=== PATIENT | male | born 1955 | race Caucasian/White ===

== ENCOUNTER → 2017-08-17 | Outpatient (CLI) | payer MEDICARE ==
[2017-08-17 11:58] LABS: HEMATOCRIT 46.7 % (42.0-52.0); HEMOGLOBIN 15.2 g/dL (13.5-18.0); MEAN CELL VOLUME 92 fl (78-100); MEAN CORPUSCULAR HEMOGLOBIN 30 pg (27-31); MEAN CORPUSCULAR HGB CONC 33 g/dL (33-37); MEAN PLATELET VOLUME 10.6 fl (7.4-10.4); PLATELET COUNT 130 K/mm3 (130-400); RED BLOOD COUNT 5.07 M/mm3 (4.20-5.60); RED CELL DISTRIBUTION WIDTH 15.3 % (11.5-14.5); WHITE BLOOD COUNT 13.9 K/mm3 (4.8-10.8)
[2017-08-17 12:23] LABS: BAND 1 % (0-10); LYMPHOCYTE 15 % (20-51); MONOCYTE 12 % (3-10); NEUTROPHILS 72 % (42-75)
[2017-08-17 13:18] LABS: ERYTHROCYTE SEDIMENTATION RATE 9 mm/hr (0-20)
== END ==
LOC: LAB 11:42
PROVIDERS: Nurse Practitioner Family
DX: M25.522 Pain in left elbow (principal); R22.30 Localized swelling, mass and lump, unspecified upper limb; Z87.39 Personal history of other diseases of the musculoskeletal system and connective tissue

== ENCOUNTER → 2018-10-17 | Outpatient (CLI) | payer MEDICARE ==
[~2018-10-17] VITALS: Ht 180.3 cm; Wt 109.1 kg
[~2018-10-17] MED LIST: ADULT ASPIRIN R81 MG PO; ALPRAZOLAM0.25 MG PO; ATORVASTATIN CA40 MG PO; FUROSEMIDE20 MG PO; HUMALOG KWIKPEN SQ; ISOSORBIDE30 MG PO; LANTUS SOLOS100 U/ML SQ; METOLAZONE5 MG PO; METOPROLOL SUC200 M1 PO; NITROSTAT0.4 M1 SL; OMEPRAZOLE40 MG PO; POTASSIUM CH2 MEQ/ML PO; PROAIR HFA0.09 MG/AC IH; RT SPIRIVA INH18 MCG IH; ULORIC40 MG PO; VASOTEC 5MG5 MG/TAB PO; WARFARIN SODIUM3 MG PO; ZANTAC300 MG PO; ZETIA10 M1 PO; ZOLPIDEM TART12.5 MG PO
[2018-10-17 13:56] LABS: EOS # 0.2 (0.04-0.40); EOS % 2.3 % (0.0-4.0); HEMATOCRIT 45.8 % (42.0-52.0); HEMOGLOBIN 14.8 g/dL (13.5-18.0); LYMPH# 1.2 (1.50-4.00); MEAN CELL VOLUME 94 fl (78-100); MEAN CORPUSCULAR HEMOGLOBIN 31 pg (27-31); MEAN CORPUSCULAR HGB CONC 32 g/dL (33-37); MEAN PLATELET VOLUME 10.7 fl (7.4-10.4); MONO # 1.1 (0.20-0.80); NEU # 6.6 (1.40-6.50); PLATELET COUNT 130 K/mm3 (130-400); RED BLOOD COUNT 4.85 M/mm3 (4.20-5.60); RED CELL DISTRIBUTION WIDTH 15.7 % (11.5-14.5); WHITE BLOOD COUNT 9.1 K/mm3 (4.8-10.8)
[2018-10-17 14:08] VITALS: BP 130/82
[2018-10-17 14:08] LABS: ALBUMIN 4.1 g/dL (3.4-4.8); POTASSIUM 3.9 mmol/L (3.5-5.1)
[2018-10-17 14:09] LABS: CALCIUM 9.6 mg/dL (8.3-10.5)
[2018-10-17 14:10] LABS: PROTHROMBIN TIME 24.4 SECONDS (9.0-12.0)
[2018-10-17 14:11] LABS: TOTAL PROTEIN 7.1 g/dL (6.2-8.1)
[2018-10-17 14:13] LABS: TOTAL BILIRUBIN 1.3 mg/dL (0.2-1.2)
== END ==
LOC: AMSURD 13:46
PROVIDERS: Internal Medicine
DX: Z01.818 Encounter for other preprocedural examination (principal); N40.1 Benign prostatic hyperplasia with lower urinary tract symptoms

== ENCOUNTER → 2019-09-18 | Outpatient (CLI) | payer MEDICARE ==
[2018-10-17 14:08] VITALS: BP 130/82
== END ==
LOC: LAB 09:59
DX: R05 Cough (principal); R09.89 Other specified symptoms and signs involving the circulatory and respiratory systems; R06.02 Shortness of breath; R19.7 Diarrhea, unspecified; Z20.828 Contact with and (suspected) exposure to other viral communicable diseases

== ENCOUNTER → 2021-02-09 | Outpatient (CLI) | payer MEDICARE | LOC: LAB 16:33 → EDSTATUS 16:48 → LAB 16:50 | DX: Z20.822 Contact with and (suspected) exposure to COVID-19 (principal) ==

== ENCOUNTER → 2023-03-12 | Outpatient (CLI) | payer MEDICARE | LOC: RAD 14:30 | DX: M25.511 Pain in right shoulder (principal) ==

== ENCOUNTER → 2023-11-02 | Outpatient (CLI) | payer MEDICARE ==
[2023-11-02 10:27] LABS: PROTHROMBIN TIME 18.2 SECONDS (9.0-12.0)
== END ==
LOC: LAB 07:52
PROVIDERS: Internal Medicine
DX: I48.20 Chronic atrial fibrillation, unspecified (principal)

== ENCOUNTER 2024-03-21 07:03 | Observation (INO) | payer MEDICARE ==
[~2024-03-21] VITALS: Ht 180.3 cm; Wt 112.5 kg
[2024-03-21] MEDS ORDERED: Albuterol/Ipratropium 3 MG-0.5 MG/3 ML Neb Soln IH ONE (07:30)
[2024-03-21 07:34] LABS: HEMATOCRIT 45.2 % (42.0-52.0); HEMOGLOBIN 14.6 g/dL (13.5-18.0); MEAN CELL VOLUME 96 fl (78-100); MEAN CORPUSCULAR HEMOGLOBIN 31 pg (27-31); MEAN CORPUSCULAR HGB CONC 32 g/dL (33-37); MEAN PLATELET VOLUME 11.1 fl (7.4-10.4); PLATELET COUNT 130 K/mm3 (130-400); RED BLOOD COUNT 4.72 M/mm3 (4.20-5.60); RED CELL DISTRIBUTION WIDTH 15.6 % (11.5-14.5); WHITE BLOOD COUNT 10.9 K/mm3 (4.8-10.8)
[2024-03-21 07:39] LABS: ALBUMIN 4.4 g/dL (3.4-4.8)
[2024-03-21 07:40] LABS: CALCIUM 9.7 mg/dL (8.3-10.5)
[2024-03-21 07:42] LABS: TOTAL PROTEIN 7.6 g/dL (6.2-8.1)
[2024-03-21 07:43] LABS: TOTAL BILIRUBIN 1.5 mg/dL (0.2-1.2)
[2024-03-21] MEDS ORDERED: Doxycycline Monohydrate 100 MG CAP PO ONE (07:45)
[2024-03-21] MEDS ORDERED: methylPREDNISolone Sod Succ 125 MG/2 ML VIAL IV ONE (07:45)
[2024-03-21 07:54] LABS: PROTHROMBIN TIME 29.3 SECONDS (9.0-12.0)
[2024-03-21 08:07] LABS: LYMPHOCYTE 4 % (20-51); MONOCYTE 9 % (3-10); NEUTROPHILS 86 % (42-75)
[2024-03-21] MEDS ORDERED: DOXYCYCLINE MO100 M3 PO (09:04)
[2024-03-21] MEDS ORDERED: PREDNISONE20 M1 PO (09:04)
[2024-03-21] MEDS ORDERED: ATROVENT HFA IH (09:04)
[2024-03-21] MEDS ORDERED: JANTOVEN4 MG PO (09:10)
[2024-03-21] MEDS ORDERED: LASIX40 M1 PO (09:13)
[2024-03-21] MEDS ORDERED: LASIX40 M1 (09:13)
[2024-03-21] MEDS ORDERED: SOTALOL HCL240 MG PO (09:16)
[2024-03-21] MEDS ORDERED: MAGNESIUM400 MG PO (09:16)
[2024-03-21] MEDS ORDERED: VITAMIN D3125 MC1 PO (09:17)
[2024-03-21] MEDS ORDERED: Magnesium Oxide 400 MG TAB PO SCH (09:34)
[2024-03-21] MEDS ORDERED: metOLazone 2.5 MG TABLET PO SCH (09:35)
[2024-03-21] MEDS ORDERED: Enalapril 5 MG TAB PO SCH (09:36)
[2024-03-21] MEDS ORDERED: Tiotropium 2.5 MCG Respimat MDI IH SCH (09:36)
[2024-03-21] MEDS ORDERED: Ezetimibe 10 MG TAB PO SCH (09:36)
[2024-03-21] MEDS ORDERED: Isosorbide Mononitrate ER (24-HR) 30 MG TAB PO SCH (09:37)
[2024-03-21] MEDS ORDERED: Insulin Glargine-yfgn (Lantus) SQ SCH (09:37)
[2024-03-21] MEDS ORDERED: Albuterol/Ipratropium 3 MG-0.5 MG/3 ML Neb Soln IH PRN (09:45)
[2024-03-21] MEDS ORDERED: Polyethylene Glycol 3350 Powder 17 GM PACKET PO PRN (09:45)
[2024-03-21] MEDS ORDERED: Acetaminophen 325 MG TAB PO PRN (09:45)
[2024-03-21] MEDS ORDERED: NS IV SCH (09:45)
[2024-03-21] MEDS ORDERED: KCL IV SCH (09:45)
[2024-03-21] MEDS ORDERED: Dextrose 50% Water 25 GM/50 ML SYRINGE IV PRN (10:00)
[2024-03-21] MEDS ORDERED: Glucagon 1 MG VIAL IM PRN (10:00)
[2024-03-21] MEDS ORDERED: Dextrose (Glucose) 15 GM (4 x 3.75 GM) Chewable TAB PACK PO PRN (10:00)
[2024-03-21] MEDS ORDERED: Nicotine 14 MG DAILY PATCH TD SCH (10:33)
[2024-03-21] MEDS ORDERED: Insulin Lispro (HumaLOG) SQ SCH (12:00)
[2024-03-21] MEDS ORDERED: Albuterol/Ipratropium 3 MG-0.5 MG/3 ML Neb Soln IH SCH (13:00)
[2024-03-21] MEDS ORDERED: Furosemide 40 MG TAB PO SCH (15:00)
[2024-03-21 15:18] VITALS: BP 120/76
--- NOTE | 2024-03-21 15:20 | NUR ---
Tele applied by staff.
--- NOTE | 2024-03-21 15:20 | NUR ---
PT BROUGHT TO MED SURG ROOM 201 VIA WHEELCHAIR WITH ASSISTANCE FROM IZA VAZQUEZ, ALL PT BELONGINGS BROUGHT WITH PT TO FLOOR AND PT ORIENTATED TO ROOM. PT CURRENTLY RESTING ON THE EDGE OF THE BED WITH CALL LIGHT IN REACH
--- NOTE | 2024-03-21 15:25 | NUR ---
PCT LU REQUESTED THAT PT STAY SEATED AND IF HE NEEDED TO STAND UP OR USE THE RESTROOM THAT HE CALL SO STAFF COULD ASSIST HIM. PT ARGUED WITH PCT, LU THEN REQUESTED THAT THIS NURSE GO SPEAK WITH PT TO DISCUSS POLICY. THIS NURSE INFORMED PT THAT IT IS HOSPITAL POLICY TO FOLLOW ALL FALL RISK PRECAUTIONS. WHEN THIS NURSE WAS LEAVING THE ROOM, THE BED ALARM WAS TURNED ON. PT ASKED WHAT THAT WAS AND THIS NURSE INFORMED HIM, PT STATED THAT "IF I FEEL LIKE STANDING UP THEN THATS WHAT IM GOING TO DO" THIS NURSE REMINDED PT OF THE DAYS INVENTS INCLUDING WHEN THE PT LOST CONCIOUSNESS IN THE ER AND WOULD HAVE FALLEN BACK HAD THE CHARGE NURSE NOT BEEN THERE, PT REPORTS "THAT WAS THE FIRST TIME IN MY LIFE THAT HAS HAPPENED IT WONT HAPPEN AGAIN"THIS NURSE AGAIN REMINDED PT OF HOSPITAL POLICY TO ENSURE PT DOES NOT FALL. PT REQUESTS THAT WE GET HIM A PHONE AND THIS NURSE INFORMED PT WE COULD HAPPILY DO THAT. PROVIDER PABLITO AND LUBA TARIQ NOTIFIED OF PT REFUSAL TO FOLLOW HOSPITAL POLICY. PROVIDER PABLITO AND LUBA REQUEST THAT WE CONTINUE TO RE-EDUCATE ON THE IMPORTANCE OF CALLING BEFORE STANDING
--- NOTE | 2024-03-21 17:00 | NUR ---
PT AGREEABLE TO CHANGE TO HOSPITAL GOWN AND NON-SKID SOCKS
--- NOTE | 2024-03-21 17:01 | NUR ---
Tele applied by staff.
[2024-03-21 17:54] VITALS: BP 119/75
[2024-03-21 18:12] LABS: CALCIUM 9.4 mg/dL (8.3-10.5)
[2024-03-21 19:00] VITALS: BP 116/70
--- NOTE | 2024-03-21 19:11 | NUR ---
REPORT TO HILLARY ALEXIS
--- NOTE | 2024-03-21 19:24 | NUR ---
RECEIVED REPORT FROM REUBEN PARKER
[2024-03-21] MEDS ORDERED: Warfarin 1 MG TAB PO SCH (21:00)
[2024-03-21] MEDS ORDERED: methylPREDNISolone Sod Succ 125 MG/2 ML VIAL IV SCH (21:00)
[2024-03-21] MEDS ORDERED: Docusate Sodium 100 MG CAP PO SCH (21:00)
[2024-03-21] MEDS ORDERED: Doxycycline Monohydrate 100 MG CAP PO SCH (21:00)
--- NOTE | 2024-03-21 21:08 | NUR ---
PATIENT C/O DISCOMFORT AT IV SITE. UPON ASSESS NOTED TO HAVE SOME MILD SWELLING TO AREA. IV STOPPED AND NEW SITE PLACED RFA. DC'D LAC IV
[2024-03-21 23:27] VITALS: BP 115/74
[2024-03-21] MEDS ORDERED: Melatonin 3 MG TAB PO SCH (23:30)
--- NOTE | 2024-03-21 23:43 | NUR ---
PATIENT REQUESTING AMBIEN THAT HE TAKES AT HOME. PROVIDER NOTIFIED AND DETERMINED THAT IT IS CONTRAINDICATED WITH SOB. MELATONIN ORDERED. PATIENT STATES HE WILL GIVE IT A TRY.
[2024-03-22] VITALS (7 sets, daily range): BP systolic 110–133; BP diastolic 71–87
--- NOTE | 2024-03-22 01:18 | NUR ---
FLUIDS COMPLETE. PATIENT RESTING
--- NOTE | 2024-03-22 04:04 | NUR ---
PATIENT CALLED TO SAY THAT THE MELATONIN IS NOT HELPING HIM SLEEP. STATES MIND WON'T SHUT OFF AND HE IS MILDLY ANXIOUS WHEN LAYING DOWN. C/O MILD SOB WITH LAYING WELL. SPO2 93% ON RA WHILE SITTING. BREATHING UNLABORED. PLACED ON 2L O2 PER NC FOR COMFORT WHILE LAYING.
--- NOTE | 2024-03-22 06:13 | NUR ---
PATIENT REPORTS HAS NOT SLEPT ALL NOC. STATES HE STILL FEELS ANXIOUS. ADVISED THAT PROVIDER WOULD NOT WANT TO GIVE AMBIEN AT 0600, BUT CAN DISCUSS FOR TONIGHT. PATIENT STATES "MORPHINE WILL HELP ME BREATH". CURRENTLY PATIENT IS BREATHING UNLABORED WITH O2 AT 2L PER NC. SATS 96%, P 67. SKIN WARM AND DRY. CAP REFILL BRISK. CALL LIGHT IN REACH
[2024-03-22] MEDS ORDERED: Furosemide 40 MG TAB PO SCH (07:00)
[2024-03-22 07:50] LABS: CALCIUM 9.3 mg/dL (8.3-10.5)
[2024-03-22 07:51] LABS: HEMATOCRIT 44.4 % (42.0-52.0); HEMOGLOBIN 14.6 g/dL (13.5-18.0); MEAN CELL VOLUME 94 fl (78-100); MEAN CORPUSCULAR HEMOGLOBIN 31 pg (27-31); MEAN CORPUSCULAR HGB CONC 33 g/dL (33-37); MEAN PLATELET VOLUME 11.1 fl (7.4-10.4); PLATELET COUNT 119 K/mm3 (130-400); RED BLOOD COUNT 4.75 M/mm3 (4.20-5.60); RED CELL DISTRIBUTION WIDTH 15.3 % (11.5-14.5); WHITE BLOOD COUNT 9.2 K/mm3 (4.8-10.8)
[2024-03-22 07:53] LABS: ALBUMIN 4.2 g/dL (3.4-4.8); TOTAL BILIRUBIN 1.3 mg/dL (0.2-1.2)
[2024-03-22 07:56] LABS: TOTAL PROTEIN 7.3 g/dL (6.2-8.1)
[2024-03-22 08:30] LABS: BAND 10 % (0-10); LYMPHOCYTE 2 % (20-51); MONOCYTE 9 % (3-10); NEUTROPHILS 79 % (42-75)
[2024-03-22] MEDS ORDERED: Furosemide 40 MG/4 ML VIAL IV ONE ×2 (08:30→08:45)
--- NOTE | 2024-03-22 08:39 | NUR ---
[facility] contacted this nurse for a critical lab BNP. This nurse verbally coveyed to Dr. Fish. Dr. Fish inquired about pts weight. [facility] nurse spoke with pt to weigh him. He declined to weigh this am. He reports "I can't breath lying down, I have anxiety from just sitting here, I deli clerk't eat." Pt is restless and sitting on the edge of the bed.
[2024-03-22] MEDS ORDERED: Cholecalciferol (Vit D3) 125 MCG (5,000 Units) Capsule PO SCH (09:00)
--- NOTE | 2024-03-22 18:16 | NUR ---
PT REPORTS FEELIN GBETTER THAN HE DID AT 0800. PT WAS ABLE TO LIE DOWN ON HIS SIDE FOR AN EXTENDED PERIOD. PT ATE SOME LUNCH AND IS EATING SUPPER NOW. PT FINISHED 2 BREATHING TREATMENTS TODAY. HE HAS NOT TRIED USING IS OR FLUTTER VALVE.
[2024-03-22] MEDS ORDERED: Zolpidem 5 MG TAB PO PRN (18:30)
--- NOTE | 2024-03-22 20:00 | NUR ---
Pt is sitting in side of bed watching TV. Denies pain when asked. Spoke with pt about his medication and when he wants to take them. Pt not sure about taking his Duoneb after educatiion he agreeed to take the treatment. Pt asked about his sleeping pills and that nurse would bring them med closer to 10pm so he can sllep more through the night. Pt stated that he normaly takes it around 11pm. Nurse suggest shahid the call when he is ready for the medication. Pt is agreeable to that sudgestion. Call light remaines in pt reach when nurse leaves room all needs have been met.
--- NOTE | 2024-03-22 23:00 | NUR ---
Pt calls for night time meds. Denies any needs when asked. Call lightin reach of pt.
[2024-03-23 07:00] LABS: HEMATOCRIT 40.6 % (42.0-52.0); HEMOGLOBIN 13.4 g/dL (13.5-18.0); MEAN CELL VOLUME 93 fl (78-100); MEAN CORPUSCULAR HEMOGLOBIN 31 pg (27-31); MEAN CORPUSCULAR HGB CONC 33 g/dL (33-37); PLATELET COUNT 116 K/mm3 (130-400); RED BLOOD COUNT 4.38 M/mm3 (4.20-5.60); RED CELL DISTRIBUTION WIDTH 14.9 % (11.5-14.5); WHITE BLOOD COUNT 7.4 K/mm3 (4.8-10.8)
[2024-03-23 07:18] LABS: ALBUMIN 3.8 g/dL (3.4-4.8)
--- NOTE | 2024-03-23 07:18 | NUR ---
REPORT FROM JARRED ALEXIS
[2024-03-23 07:20] VITALS: BP 121/76
[2024-03-23 07:21] LABS: TOTAL PROTEIN 6.7 g/dL (6.2-8.1)
[2024-03-23 07:22] LABS: TOTAL BILIRUBIN 0.9 mg/dL (0.2-1.2)
[2024-03-23 07:34] LABS: PROTHROMBIN TIME 25.1 SECONDS (9.0-12.0)
[2024-03-23 07:40] LABS: BAND 13 % (0-10); LYMPHOCYTE 3 % (20-51); MONOCYTE 6 % (3-10); NEUTROPHILS 78 % (42-75)
--- NOTE | 2024-03-23 08:31 | NUR ---
PT FOUND STANDING AT THE EDGE OF THE BED UPON ENTRY TO ROOM, PT ASSESSED BY PROVIDER PABLITO AND THIS NURSE, PT AGREED TO SIT BACK ON THE EDGE OF THE BED. THIS NURSE SPOKE WITH PROVIDER PABLITO AND GIVEN PTS SYNCOPAL EPISODE PROVIDER FEELS THOUGH UP AD MARCO A WOULD NOT BE A SAFE ORDER. THIS NURSE REPORTED TO PROVIDER PTS CONTINUED DISREGARD FOR HOSPITAL POLICY CONCERNING BED ALARMS, THIS NURSE THEN IN TO SPEAK WITH PT AND FULLY EDUCATED ON THE RISKS AMBULATING/STANDING WITHOUT STAFF ASSISTANCE. PT REPORTS FULL UNDERSTANDING OF THE RISKS INCLUDING THE HARM THAT COULD RESULT IF A FALL WERE TO OCCUR. PT REPORTS HE IS REFUSING BED/CHAIR ALARMS AT THIS TIME. PT EDUCATED AGAIN TO PLEASE CALL BEFORE STANDING/AMBULATING TO THE RESTROOM. PT SITTING ON THE EDGE OF THE BED WITH CALL LIGHT IN REACH, PT DENIES FURTHER NEEDS AT THIS TIME
[2024-03-23] MEDS ORDERED: predniSONE 20 MG TAB PO SCH (09:00)
[2024-03-23] MEDS ORDERED: Isosorbide Mononitrate ER (24-HR) 60 MG TAB PO SCH (09:00)
--- NOTE | 2024-03-23 09:01 | NUR ---
PT ALERT AND ORIENTED X4, SEE OTHER NOTE IN REGARDS TO PT EDUCATION/REFUSAL OF BED/CHAIR ALARMS. PROVIDER PABLITO NOTIFIED OF PT REFUSAL. PT RESTING ON THE EDGE OF HIS BED EATING BREAKFAST. PT ASSESSED AND MEDICATIONS GIVEN BY NELL ALEXIS. PT DENIES ANY PAIN THIS MORNING AND REPORTS FEELING BETTER THAN HE DID YESTERDAY. PT NOW RESTING ON THE EDGE OF HIS BED EATING BREAKFAST WITH CALL LIGHT IN REACH, THIS NURSE AGAIN EDUCATED ON THE IMPORTANCE OF CALLING BEFORE EXITING THE BED TO PREVENT FALLS
--- NOTE | 2024-03-23 10:18 | NUR ---
PT AMBULATES WITH THIS NURSE DOWN THE HALLWAY THAT LEADS TO [place], DURING AMBULATION PT SPO2 STAYED AT 90 PERCENT OR ABOVE, WHEN SITTING BACK DOWN ON PT BED PT SPO2 WAS 86 PERCENT AT 1018, PT SPO2 CAME BACK TO 92 PERCENT WITHIN 1 MINUTE. PROVIDER PABLITO NOTIFIED OF PROGRESS, PROVIDER PABLITO REQUESTS WE ATTEMPT THE TRIAL AGAIN DUE TO HYPOXIC EVENT OF 86 PERCENT. PT RESTING ON THE EDGE OF THE BED, THIS NURSE AGAIN EDUCATED/REQUESTS PT USE CALL LIGHT, PT REFUSES BED ALARM.
[2024-03-23 11:09] VITALS: BP 109/70
--- NOTE | 2024-03-23 11:56 | NUR ---
THIS NURSE AND AMANDA RN AMBULATED WITH PT DOWN THE [address] WAY TO THE [place], PT STARTED WALK AT 94 % AND RETURNED TO THE BED AT 91%, RECOVERING FROM THE WALK AND TALKING TO AMANDA ALEXIS PT SPO2 DROPPED TO 89 BUT QUICKLY RETURNED TO 91% ON ROOM AIR, THIS NURSE REPORTED PROGRESS TO PROVIDER PABLITO. PROVIDER WILL BE IN TO SEE PT TO DISCUSS PT WISHES SHORTLY AFTER PT EATS LUNCH
--- NOTE | 2024-03-23 12:09 | NUR ---
PT EATING LUNCH, PROVIDER WILL BE IN TO DISCUSS PT PROGRESS AFTER MEAL
--- NOTE | 2024-03-23 12:58 | NUR ---
THIS NURSE AND PROVIDER IN TO SPEAK TO PT, AFTER PROGRESS DISCUSSION PROVIDER REQUESTS THAT PT STAY FOR ONE MORE NIGHT BUT PT COULD GO HOME IF HE WISHED TO. PT REPORTS THAT HE THINKS ONE MORE NIGHT WOULD BE GOOD.
[2024-03-23 15:11] VITALS: BP 137/72
--- NOTE | 2024-03-23 15:43 | NUR ---
PT HAS PROGRESSED TO NO LONGER NEEDING OXYGEN AND HAS MAINTAINED STABILITY WHILE AMBULATING WITH STAFF, PT HAS BEEN GRANTED ROOM PRIVLIDGES BY DR KENNEY AND THE CHAIR ALARM HAS BEEN TURNED OFF. PT NOTIFIED
[2024-03-23] MEDS ORDERED: Carboxymethylcellulose PF Ophth 0.4 ML DROPPERETTE OP PRN (18:30)
--- NOTE | 2024-03-23 18:50 | NUR ---
Report received from Lisa Soliman RN.
--- NOTE | 2024-03-23 18:55 | NUR ---
REPORT TO JARRED ALEXIS
[2024-03-23 19:00] VITALS: BP 104/68
--- NOTE | 2024-03-23 20:40 | NUR ---
Pt sitting on the edge of bed watching TV, Pt denies pain when asked. Pt reports he is feeling much better, that he can lay down without feeling like he being suffacated. Pt has no O2 on and denies shortness of breath. All needs meet while in room. Call light in reach of pt.
[2024-03-23 23:00] VITALS: BP 113/73
--- NOTE | 2024-03-23 23:24 | NUR ---
Pt calls for his Ambien. Denies any other needs
[2024-03-24 03:00] VITALS: BP 113/77
--- NOTE | 2024-03-24 06:21 | NUR ---
Pt is up in room when nurse enteres room to give medications. Pt reports getting at least 6 hours of sleep which id good for him cause his normal is 5 hours. Pt denies any needs when nurse in room. He is encouraged to call if assistance is needed.
--- NOTE | 2024-03-24 06:51 | NUR ---
report given to Matias Luis
[2024-03-24 07:28] VITALS: BP 120/81
--- NOTE | 2024-03-24 09:00 | NUR ---
PT DRESSED AND READY FOR DISCHARGE UPON ENTRY, PT GIVEN MEDICATIONS BY THIS NURSE WITHOUT COMPLICATION. PT AMBULATES SAFELY THROUGHOUT THE ROOM. PT NOW RESTING ON THE EDGE OF BED AWAITING DISCHARGE PAPERWORK.
--- NOTE | 2024-03-24 09:45 | NUR ---
PT GIVEN ALL DISCHARGE PAPERWORK AT THIS TIME, ALL PT QUESTIONS REGARDING MEDICATIONS/SCRIPTS/LAST TAKEN ANSWERED BY THIS NURSE AND HIGHLIGHTED ON PT MEDICATION SHEET. DISCHARGE WITH EDUCATION PERFORMED, PT DENIED ANY FURTHER QUESTIONS AND SIGNED ALL NEEDED DOUCMENTS. PT REQUESTS WHEELCHAIR TRANSPORT TO HIS VEHICLE GIVEN THE LONG DISTANCE. PT LOADED INTO WHEEL CHAIR WITH ALL BELONGINGS INCLUDING CANE, WALLET, PHONE, GLASSES COAT, AND HOSPITAL PROVIDED SUPPLIES. PT GIVEN TRANSPORT TO VEHICLE WHERE HE SAFELY GOT IN. PT DISCHARGED AT THIS TIME
== END 2024-03-24 09:45 | disposition home or self-care (01) ==
LOC: ED 07:03 → MED/SURG 09:14
PROVIDERS: ADMIT Family Medicine
DX: J44.9 Chronic obstructive pulmonary disease, unspecified (principal); R09.02 Hypoxemia; R55 Syncope and collapse; N17.9 Acute kidney failure, unspecified; Z66 Do not resuscitate; E11.9 Type 2 diabetes mellitus without complications; I50.9 Heart failure, unspecified; I48.91 Unspecified atrial fibrillation; E78.5 Hyperlipidemia, unspecified; I24.9 Acute ischemic heart disease, unspecified; E87.6 Hypokalemia; R94.31 Abnormal electrocardiogram [ECG] [EKG]; E55.9 Vitamin D deficiency, unspecified; K21.9 Gastro-esophageal reflux disease without esophagitis; E66.9 Obesity, unspecified; F17.210 Nicotine dependence, cigarettes, uncomplicated; K59.00 Constipation, unspecified; Z79.01 Long term (current) use of anticoagulants; Z79.4 Long term (current) use of insulin; Z79.84 Long term (current) use of oral hypoglycemic drugs; Z79.899 Other long term (current) drug therapy
CPT/HCPCS: A9270; G0378; J1815; J1940; J2919; J3480; J7512